=== PATIENT | male | born 1985 | race Two or more races ===

== ENCOUNTER 2019-06-24 10:47 | Emergency (ER) | payer OTHER ==
[~2019-06-24] VITALS: Ht 170.2 cm; Wt 122.0 kg
[2019-06-24 11:01] VITALS: BP 137/87
== END 2019-06-24 13:20 | disposition home or self-care (01) ==
LOC: ED 13:18
DX: K64.4 Residual hemorrhoidal skin tags (principal)
CPT/HCPCS: 99283

== ENCOUNTER 2020-09-12 03:35 | Emergency (ER) | payer OTHER ==
[~2020-09-12] VITALS: Ht 172.7 cm; Wt 132.8 kg
--- NOTE | 2020-09-12 03:59 | NUR ---
PT HAS HISOTY OF ANAL ABCESS, PT HAD SURGERY IN 2010 FOR THAT ISSUE. PT HASNT HAD AN ISSUE UNTIL NOW. PT IS IN 9/10 PAIN. ON CONTINUOUS PULSE OX. AWAITING ERP EVAL
[2020-09-12] MEDS ORDERED: ONDANSETRON 2MG/ML, 2ML ONE (05:07)
[2020-09-12] MEDS ORDERED: HYDROmorphone 1 MG/ML, 1ML INJ ONE ×2 (05:07→08:22)
--- NOTE | 2020-09-12 05:29 | NUR ---
PT MEDICATED FOR PAIN PER EMAR, IV INSERTED, LABS DRAWN
[2020-09-12] MEDS ORDERED: SODIUM CHLORIDE FLUSH 10ML SYR IVF ONE (05:30)
[2020-09-12] MEDS ORDERED: HYDROmorphone 2 MG/ML, 1ML IVPush ONE (05:30)
[2020-09-12] MEDS ORDERED: ONDANSETRON 2MG/ML, 2ML IVPush ONE (05:30)
[2020-09-12 05:37] LABS: BASOPHILS % (AUTO) 1 % (0-1); EOSINOPHILS % (AUTO) 1 % (1-7); LYMPHOCYTES % (AUTO) 16 % (22-44); MEAN CORPUSCULAR HEMOGLOBIN 30.1 pg (27.5-34.5); MEAN CORPUSCULAR HGB CONC 34.2 g/dL (33.2-36.2); MEAN PLATELET VOLUME 8.8 fL (7.4-10.4); MONOCYTES % (AUTO) 9 % (2-9); NEUTROPHILS % (AUTO) 73 % (42-75); PLATELET COUNT 256 x10^3/uL (130-400); RED BLOOD COUNT 5.35 x10^6/uL (4.38-5.82); RED CELL DISTRIBUTION WIDTH 13.7 % (9.4-14.8)
[2020-09-12 05:43] LABS: MD NO
[2020-09-12 05:53] LABS: ALANINE AMINOTRANSFERASE 43 U/L (12-78); ALBUMIN 3.9 g/dL (3.4-5.0); ANION GAP 4 mmol/L (5-15); CALCIUM 9.2 mg/dL (8.5-10.1); CHLORIDE 106 mmol/L (98-107); CREATININE 0.78 mg/dL (0.7-1.3)
[2020-09-12 05:55] LABS: ALKALINE PHOSPHATASE 141 U/L (45-117); BILIRUBIN,TOTAL 0.4 mg/dL (0.2-1.0)
--- NOTE | 2020-09-12 06:03 | NUR ---
PT TO CT
[2020-09-12] MEDS ORDERED: OMNIPAQUE 350 MG/ML, 100ML BOTTLE ONE ×2 (06:13→06:22)
--- NOTE | 2020-09-12 06:52 | NUR ---
REPORT GIVEN TO LINDY ESTRADA
[2020-09-12] MEDS ORDERED: CIPROFLOXACIN/PMX 400MG/200ML 200 ML ONE (07:58)
[2020-09-12] MEDS ORDERED: CIPROFLOXACIN/PMX 400MG/200ML 200 ML IVPB ONE (08:00)
[2020-09-12] MEDS ORDERED: METRONIDAZOLE PMX 500MG/100ML 100 ML IV ONE (08:00)
--- NOTE | 2020-09-12 08:02 | NUR ---
LADI MURPHY STATES NO BLOOD CULTURES NEEDED PRIOR TO STARTING ANTIBIOTICS. PT STATES 9/10 RECTAL PAIN. TO DISCUSS WITH PROVIDER
[2020-09-12] MEDS ORDERED: METRONIDAZOLE PMX 500MG/100ML 100 ML ONE (08:21)
--- NOTE | 2020-09-12 08:27 | NUR ---
PT MEDICATED FOR PAIN, 07/15
[2020-09-12] MEDS ORDERED: HYDROmorphone 1 MG/ML, 1ML INJ IV ONE (08:30)
--- NOTE | 2020-09-12 09:10 | NUR ---
PT STATES PAIN IS NOW 03/14
[2020-09-12 10:30] VITALS: BP 164/96
--- NOTE | 2020-09-12 11:01 | NUR ---
PT AND SPOUSE REC'VD DISCHARGE INSTRUCTIONS AND EDUCATION. PT AND SPOUSE TATED THEY HAD NO FURTHER QUESTIONS. PT AMBULATED TO DC DESK, STEADY GAIT.
== END 2020-09-12 11:05 | disposition home or self-care (01) ==
LOC: ED 04:22
DX: K61.1 Rectal abscess (principal); K62.89 Other specified diseases of anus and rectum
CPT/HCPCS: 36415; 72193; 80053; 85025; 96365; 96367; 96375; 96376; 99285; J0744; J1170; J2405; Q9967